=== PATIENT | female | born 1990 | race Hispanic/Latino ===

== ENCOUNTER 2020-03-05 12:03 | Emergency (ER) | payer BC, OTHER ==
[~2020-03-05] VITALS: Ht 165.1 cm; Wt 131.5 kg
[2020-03-05] MEDS ORDERED: DEXAMETHASONE SOD PHOS INJ 4 MG/ML VIAL IV ONE (12:45)
--- NOTE | 2020-03-05 12:49 | Emergency Department Note ---
History of Present Illnes History of Present Illness Chief Complaint: General Medicine Complaints History of Present Illness This is a 30 year old female Chief Complaint Comment 6 DAYS AGO HAD FLU SHOT. SINCE THEN SHE HAS BEEN HAVING GENERALIZED BODY ACHES, SHORT OF BREATH WHEN CLIMBING STAIRS. TEMP 100.4, COUGH WHEN TAKING A DEEP BREATH, FEELS WHEEZY. SEEN BY VIRTUAL VISIT YESTERDAY AND GIVEN DOXY/PREDNISONE. HAS ALSO TAKEN MO NTELUKUST/TESSALON/OLIVA/ALBUTEROL. Historian: Patient Arrival Mode: Car Additional Treatment MANAGER MEDICARE MARKETING: MONTELUKUST/TESSALON/OLIVA/ALBUTEROL Audiologist Required: No Onset (how long ago): month(s) Location: None Quality: Depressed Severity: moderate Onset quality: gradual Duration (how long): month(s) Timing of current episode: constant Progression: waxing and waning Chronicity: new Context: Denies recent illness, Denies recent surgery Relieving factors: none Exacerbating factors: none Associated symptoms: Reports denies other symptoms Treatments prior to arrival: none Past Medical/Family History Physician Review I have reviewed the patient's past medical and family history. Any updates have been documented here. Past Medical History Recent Fever: Yes (100.4 @HOME) Clinical Suspicion of Infectio: No New/Unexplained Change in Ment: No Past Medical History: Asthma Review of Systems Review of Systems Constitutional: Reports as per HPI EENTM: Reports no symptoms Cardiovascular: Reports no symptoms Respiratory: Reports no symptoms Gastrointestinal: Reports no symptoms Genitourinary: Reports no symptoms Musculoskeletal: Reports no symptoms Integumentary: Reports no symptoms Neurological: Reports no symptoms, Reports weakness (Generalized) Psychological: Reports no symptoms Endocrine: Reports no symptoms Hematological/Lymphatic: Reports no symptoms Physical Exam Related Data Allergies: Coded Allergies: promethazine HCl (Verified Allergy, Unknown, CHILD, 03/05/20) Triage Vital Signs Vital Signs Date Time Temp Pulse Resp B/P (MAP) Pulse Ox O2 Delivery O2 Flow Rate FiO2 03/05/20 12:17 98.5 109 20 155/104 99 Room Air Vital signs reviewed: Yes Physical Exam CONSTITUTIONAL Constitutional: Present well-developed, Present well-nourished HENT HENT: Present normocephalic, Present atraumatic, Present oropharynx clear/moist, Present nose normal HENT L/R: Present left ext ear normal, Present right ext ear normal EYES Eyes: Reports PERRL, Reports conjunctivae normal NECK Neck: Present ROM normal PULMONARY Pulmonary: Present effort normal, Present breath sounds normal CARDIOVASCULAR Cardiovascular: Present regular rhythm, Present heart sounds normal, Present capillary refill normal, Present normal rate GASTROINTESTINAL Abdominal: Present soft, Present nontender, Present bowel sounds normal GENITOURINARY Genitourinary: Present exam deferred SKIN Skin: Present warm, Present dry MUSCULOSKELETAL Musculoskeletal: Present ROM normal NEUROLOGICAL Neurological: Present alert, Present oriented x 3, Present no gross motor or sensory deficits PSYCHOLOGICAL Psychological: Present mood/affect normal, Present judgement normal Results Laboratory Lab results reviewed: Yes Imaging Imaging results reviewed: Yes Diagnostics Tests Diagnostic test(s) reviewed: Yes Assessment & Plan Medical Decision Making MDM 30 y.o F presents for asthma exacerbation. State she usually gets a steroid shot. Exam unremarkable. CXR normal. Given Decadron shot and she is appropriate for DC. Reassessment Reassessment time: 14:16 Reassessment Well appearing, NAD Assessment & Plan Final Impression: (1) Asthma attack Depart Disposition: HOME, SELF-CARE Last Vital Signs Date Time Temp Pulse Resp B/P (MAP) Pulse Ox O2 Delivery O2 Flow Rate FiO2 03/05/20 12:17 98.5 109 20 155/104 99 Room Air Medications in the ED Dexamethasone Sodium Phosphate 10 mg ONCE ONCE IV ; Start 03/05/20 at 12:45; Stop 03/05/20 at 12:46; Status DC SUSHILA COLLAZO MD Mar 05, 2020 12:49
--- NOTE | 2020-03-05 14:01 | Diagnostic Imaging Report ---
EXAM: CHEST SINGLE (PORTABLE) DATE: 03/05/2020 1:20 PM INDICATION: Shortness of breath COMPARISON: None FINDINGS: The trachea is midline. There is minimal opacity present within the left lower lung zone which likely reflects atelectasis. There is no evidence for large focal consolidation, pneumothorax, or significant pleural effusion. The cardiomediastinal silhouette and pulmonary vasculature are within normal limits. No acute osseous abnormality is identified. The surrounding soft tissues are unremarkable. IMPRESSION: No acute cardiopulmonary process identified. Signed by: Dr. Spenser Degroot MD on 03/05/2020 1:58 PM
--- OUTSIDE RECORDS SUMMARY | 2020-03-05 14:11 | XMS REPORT | Continuity of Care Document ---
Author Author [facility] t Organization [facility] Address [address] [place] [address] Phone Unavailable Care Team Providers Care Deportation Examiner Name Role Phone Jethro Banueloszoë Unavailable Payers Payer Name Policy Type Policy Number Effective Date Expiration Date S ource Problems This patient has no known problems. Allergies, Adverse Reactions, Alerts Allergy Name Allergy Type Status Severity Reaction(s) Onset Date Inacti ve Date Treating Clinician Comments Source No Known Allergies DA Active U 2019-05-16 00:00:00 [facility] Social History Smoking Status Start Date Stop Date Source Never Smoker [facility] Medications Ordered Medication Name Filled Medication Name Start Date Stop Da te Current Medication? Ordering Clinician Indication Dosage Frequency Signature (SIG) Comments Components Source albuterol sulf 90 mcg/actuation breath a ctivated powder inhaler,sensor Inhale 2 puffs every 4 hours by inhalation route. albuterol sulf 90 mcg/actuation breath activated powder inhaler,sensor Inhale 2 puffs every 4 hours by inhalation route. No 2puff(s) Q4H albuterol sulf 90 mcg/actuation breath activated powder inhaler,sensor Inhale 2 puffs every 4 hours by inhalation route. [facility] albuterol sulfate 2.5 mg/3 mL (0.083 %) solution for nebulization Inhale 3 mL 4 times a day by nebulization route as needed. albuterol sulfate 2.5 mg/3 mL (0.083 %) solution for nebulization Inhale 3 mL 4 times a day by nebulization route as needed. No 3mL QID albuter ol sulfate 2.5 mg/3 mL (0.083 %) solution for nebulization Inhale 3 mL 4 times a day by nebulization route as needed. [facility] ice Princess Allergy daily Princess Allergy daily No Princess Allergy daily [facility] ice doxycycline hyclate 100 mg tablet Take 1 tablet twice a day by oral route for 7 days. doxycycline hyclate 100 mg tablet Take 1 tablet twice a day by oral route for 7 days. No 1 BID doxycycline hyclate 100 mg tablet Take 1 tablet twice a day by oral route for 7 days. [facility] Flonase Allergy Relief 50 mcg/actuation nasal spray,suspension [place] 1 spray twice a day by intranasal route. Flonase Allergy Relief 50 mcg/actuation nasal spray,suspension [place] 1 spray twice a day by intranasal route. No 1spray(s) BID Flonase Allergy Relief 50 mc g/actuation nasal spray,suspension [place] 1 spray twice a day by intranasal route. [facility] ibuprofen 600 mg tablet Take 1 tablet 3 times a day by oral route as needed. fever and body aches ibuprofen 600 mg tablet Take 1 tablet 3 times a day by oral route as needed. fever and body aches No 1 TID ibuprofen 600 mg tablet Take 1 tablet 3 times a day by oral route as needed. fever and body aches [facility] Medrol (Domo) 4 mg tablets in a dose pack [facility]rol (Domo) 4 mg tablets in a dose pack follow box instructions No Medrol (Domo) 4 mg tablets in a dose pack follow box instructions [facility] montelukast 10 mg tablet Take 1 tablet every day by or al route. montelukast 10 mg tablet Take 1 tablet every day by oral route. No 1 Q1D montelukast 10 mg tablet Take 1 tablet every day by oral route. [facility] ProAir HFA 90 mcg/actuation aerosol inha ler Inhale 2 puffs every 4 hours by inhalation route as needed. ProAir HFA 90 mcg/actuation aerosol inha ler Inhale 2 puffs every 4 hours by inhalation route as needed. No 2puff(s) Q4H ProAir HFA 90 mcg/actuation aerosol inhaler Inhale 2 puffs every 4 hours by inhalation route as needed. [facility] Symbicort 80 mcg-4.5 mcg/actuation HFA a erosol inhaler Inhale 2 puffs twice a day by inhalation route. Symbicort 80 mcg-4.5 mcg/actuation HFA a erosol inhaler Inhale 2 puffs twice a day by inhalation route. No 2puff(s) BID Symbicort 80 mcg-4.5 mcg/actuation HFA aerosol inhaler Inhale 2 puffs twice a day by inhalation route. [facility] Tessalon Perles 100 mg capsule Take 1 capsule 3 times a day by oral route. Tessalon Perles 100 mg capsule Take 1 capsule 3 times a day by oral route. No 1capsule(s) TID Tessalon Perles 100 mg capsule Take 1 capsule 3 times a day by oral route. [facility] Immunizations Ordered Immunization Name Filled Immunization Name Date Status Comments Source influenza, injectable, quadrivalent influenza, injectable, q uadrivalent 2020-02-28 00:00:00 Completed [facility] ice influenza, injectable, quadrivalent influenza, injectable, q uadrivalent 2019-03-06 00:00:00 Completed [facility] Vital Signs Vital Name Observation Time Observation Value Comments Source Height 2020-03-04 00:00:00 65 [in_i] [facility] BMI (Body Mass Index) 2020-03-04 00:00:00 44.9 kg/m2 [facility] Body Weight 2020-03-04 00:00:00 270 [lb_av] [facility] Procedures This patient has no known procedures. Encounters Start Date/Time End Date/Time [facility] ID Source 2020-03-04 00:00:00 2020-03-04 00:00:00 Alanis hurt MD: [address] , [address], [place] [address], Ph. [facility] - [email or web address]. [place] ([facility]) [id number] [facility] Results Test Description Test Time Test Comments Results Result Comments Source CHEST SINGLE (PORTABLE) 2020-03-05 13:55:00 [place] [address] Patient Name: UYEN FORMAN MR #: [id number] : 1990 Age/Sex: 30/F Req #: [id number] Adm Physician: Ordered by: Raymond Banuelos MD Report #: [id number] Location: ER Room/Bed: Procedure: [id number] DX/CHEST SINGLE (PORTABLE) Exam Date: 03/05/20 Exam Time: 1320 REPORT STATUS: Signed EXAM: CHEST SINGLE (PORTABLE) DATE: 03/05/2020 1:20 PM INDICATION: Shortness of breath COMPARISON: None FINDINGS: The trachea is midline. There is minimal opacity present within the left lower lung zone which likely reflects atelecta sis. There is no evidence for large focal consolidation, pneumothorax, or significant pleural effusion. The cardiomediastinal silhouette and pulmonary vasculature are within normal limits. No acute osseous abnormality is identified. The surrounding soft tissues are unremarkable. IMPRESSION: No acute cardiopulmonary process identified. Signed by: Dr. Spenser Degroot MD on 03/05/2020 1:58 PM Dictated By: SPENSER DEGROOT MD [id number] Transcribed By: MARIPOSA on 03/05/20 1353 COPY TO: RAYMOND BANUELOS MD
--- OUTSIDE RECORDS SUMMARY | 2020-03-05 14:11 | XMS REPORT | Continuity of Care Document ---
Author Author [facility] [place] [employer] UYEN Mckeon [employer] Address Unknown Phone Unavailable Care Team Providers Care Paid Search Analyst Name Role Phone [employer] Unavailable Un available Problems No Data Provided for This Section Medications No Data Provided for This Section Allergies, Adverse Reactions, Alerts No Known Medication Allergies Immunizations No Data Provided for This Section Results No Data Provided for This Section Pathology Reports No Data Provided for This Section Diagnostic Reports No Data Provided for This Section Consultation Notes No Data Provided for This Section Discharge Summaries No Data Provided for This Section History and Physicals No Data Provided for This Section Vital Signs No Data Provided for This Section Encounters Location Location Details Encounter Type Encounter Number Reason For Visit Attending Provider ADM Date DC Date Status Source Outpatient [id number] CARTER HURLEY 04/28/2015 Active [facility] Outpatient [id number] CARTER HURLEY 04/30/2015 Active Tato Dowell Procedures No Data Provided for This Section Assessment and Plan No Data Provided for This Section Plan of Care No Data Provided for This Section Social History No Data Provided for This Section Family History No Data Provided for This Section Advance Directives No Data Provided for This Section Functional Status No Data Provided for This Section
[2020-03-05 14:37] VITALS: BP 131/77
== END 2020-03-05 15:00 | disposition home or self-care (01) ==
LOC: ER 12:20
DX: U07.1 COVID-19 (principal); J45.909 Unspecified asthma, uncomplicated
CPT/HCPCS: 71045; 99284; J1100; U0002